=== PATIENT | male | born 1955 | race Caucasian/White ===

== ENCOUNTER 2020-12-06 08:55 | Inpatient (IN) | payer BC ==
[2020-12-06 09:01] VITALS: BMI 29.5
[2020-12-06 10:57] LABS: BASO % 0.5 % (0-2.0); EOS % 0.2 % (0-4.5); HEMATOCRIT 44.8 % (35.4-49); HEMOGLOBIN 14.9 GM/dL (11.7-16.9); LYMPH % 5.2 % (8-40); MCH 32.6 pg (25.7-33.7); MCHC 33.3 g/dl (32.0-35.9); MEAN CELL VOLUME 97.9 fl (80-96); MEAN PLT VOLUME 9.6 fl (7.5-11.1); MONO % 5.8 % (3.8-10.2); NEUT % 88.3 % (42.8-82.8); PLATELET COUNT 287 10^3/uL (134-434); RBC 4.58 M/mm3 (4.00-5.60); RDW 13.8 % (11.9-15.9); WHITE BLOOD COUNT 18.3 K/mm3 (4.0-10.0)
[2020-12-06 11:19] LABS: CHLORIDE 96 mmol/L (98-107); SODIUM 135 mmol/L (136-145)
[2020-12-06 11:24] LABS: ANION GAP 15 MMOL/L (8-16); BLOOD UREA NITROGEN 35.5 mg/dL (7-18); CO2 24 mmol/L (21-32); GLUCOSE,RANDOM 144 mg/dL (74-106)
[2020-12-06 11:27] LABS: CREATININE 1.7 mg/dL (0.55-1.3)
[2020-12-06 11:29] LABS: ALK PHOS 454 U/L (45-117); SGOT/AST 75 U/L (15-37); TOT PROT 7.1 g/dl (6.4-8.2)
[2020-12-06 11:31] LABS: N-TERMINAL BNP 150.7 pg/ml (5-125)
[2020-12-06 11:44] LABS: SGPT/ALT 100 U/L (13-61)
[2020-12-06 11:53] LABS: BILIRUBIN,TOTAL 1.7 mg/dL (0.2-1)
[2020-12-06] MEDS ORDERED: THIAMINE HCL 200 MG/2 ML VIAL IVPB ONE (19:10)
[2020-12-06] MEDS: PANTOPRAZOLE 40 MG TABLET PO SCH (20:24)
[2020-12-06] MEDS ORDERED: cefTRIAXone SODIUM 1 GM VIAL ONE (20:37)
[2020-12-06] MEDS ORDERED: DEXTROSE 5%-WATER - 50 ML IVPB ONE (20:38)
[2020-12-06] MEDS: CEFTRIAXONE 1 GM in DEXTROSE 5%-WATER - 50 ML IVPB SCH (20:42)
[2020-12-06] MEDS ORDERED: SODIUM CHLORIDE 500 ML IV STA (21:07)
[2020-12-06] MEDS ORDERED: SODIUM CHLORIDE 1,000 ML IV SCH (21:30)
[2020-12-06 22:28] LABS: EPI CELLS 22 /uL (0-25.1); HYALINE CASTS 19 /uL (0-3.1); URINE APPEARANCE CLOUDY; URINE BILIRUBIN 2+ (NEGATIVE); URINE COLOR DK YELLOW; URINE GLUCOSE (UA) NEGATIVE (NEGATIVE); URINE KETONE TRACE (NEGATIVE); URINE LEUK ESTERASE NEGATIVE (NEGATIVE); URINE NITRITE POSITIVE (NEGATIVE); URINE PROTEIN TRACE (NEGATIVE); URINE WBC 11 /uL (0-25.8)
[2020-12-06 23:01] LABS: URINE BACTERIA 4.7 /uL (0-1359); URINE RBC 83.8 /uL (0-23.9)
[2020-12-07 09:07] LABS: INR 1.14 (0.83-1.09)
[2020-12-07 09:09] LABS: HEMATOCRIT 41.3 % (35.4-49); HEMOGLOBIN 14.1 GM/dL (11.7-16.9); MCHC 34.1 g/dl (32.0-35.9); MEAN CELL VOLUME 96.9 fl (80-96); MEAN PLT VOLUME 9.3 fl (7.5-11.1); PLATELET COUNT 256 10^3/uL (134-434); RBC 4.26 M/mm3 (4.00-5.60); RDW 13.9 % (11.9-15.9); WHITE BLOOD COUNT 20.2 K/mm3 (4.0-10.0)
[2020-12-07] MEDS ORDERED: cefTRIAXone SODIUM 1 GM VIAL ONE (09:09)
[2020-12-07] MEDS ORDERED: DEXTROSE 5%-WATER - 50 ML IVPB ONE (09:09)
[2020-12-07] MEDS: FOLIC ACID 1 MG TABLET (FP) PO SCH (09:27)
[2020-12-07] MEDS: THIAMINE HCL 100 MG TABLET (FP) PO SCH (09:27)
[2020-12-07] MEDS: CEFTRIAXONE 1 GM in DEXTROSE 5%-WATER - 50 ML IVPB SCH (09:27)
[2020-12-07] MEDS: PANTOPRAZOLE 40 MG TABLET PO SCH (09:27)
[2020-12-07] MEDS: MULTIVITAMINS (DAILY MVI) TABLET (FP) PO SCH (09:27)
[2020-12-07 09:30] LABS: ALBUMIN 2.8 g/dl (3.4-5.0); BLOOD UREA NITROGEN 45.5 mg/dL (7-18); CALCIUM 8.7 mg/dL (8.5-10.1)
[2020-12-07 09:31] LABS: MAGNESIUM 2.4 mg/dL (1.8-2.4)
[2020-12-07 09:34] LABS: CREATININE 1.4 mg/dL (0.55-1.3); PHOSPHOROUS 4.6 mg/dL (2.5-4.9)
[2020-12-07 09:35] LABS: TOT PROT 6.4 g/dl (6.4-8.2)
[2020-12-07 09:42] LABS: BILIRUBIN,TOTAL 1.8 mg/dL (0.2-1)
[2020-12-07] MEDS: SODIUM CHLORIDE 1,000 ML IV SCH (14:32)
[2020-12-07 16:34] LABS: BF WBC & OTHER NUCLEATED CELLS 5153 /mm3
[2020-12-07 17:20] LABS: BODY FLUID MONOCYTE 9 %
[2020-12-07 17:21] LABS: BODY FLUID MESOTHELIAL 2 %
[2020-12-07] MEDS ORDERED: MELATONIN 5 MG TABLETS PO ONE (20:01)
[2020-12-07] MEDS: SPIRONOLACTONE 25 MG TABLET PO SCH (21:08)
[2020-12-07 22:15] LABS: PH,URINE 5.5 (5.0-8.0); URINE APPEARANCE CLEAR; URINE BILIRUBIN 2+ (NEGATIVE); URINE COLOR DK YELLOW; URINE GLUCOSE (UA) NEGATIVE (NEGATIVE); URINE KETONE 1+ (NEGATIVE); URINE LEUK ESTERASE NEGATIVE (NEGATIVE); URINE NITRITE NEGATIVE (NEGATIVE); URINE PROTEIN TRACE (NEGATIVE)
[2020-12-08] MEDS: SODIUM CHLORIDE 1,000 ML IV SCH (02:14)
[2020-12-08 09:07] LABS: BASO % 0.4 % (0-2.0); EOS % 0.4 % (0-4.5); HEMATOCRIT 40.2 % (35.4-49); HEMOGLOBIN 13.6 GM/dL (11.7-16.9); LYMPH % 5.7 % (8-40); MCH 32.8 pg (25.7-33.7); MCHC 33.9 g/dl (32.0-35.9); MEAN CELL VOLUME 96.7 fl (80-96); MEAN PLT VOLUME 9.4 fl (7.5-11.1); MONO % 6.3 % (3.8-10.2); NEUT % 87.2 % (42.8-82.8); PLATELET COUNT 205 10^3/uL (134-434); RBC 4.16 M/mm3 (4.00-5.60); RDW 13.9 % (11.9-15.9)
[2020-12-08 09:18] LABS: ALBUMIN 2.4 g/dl (3.4-5.0); BLOOD UREA NITROGEN 43.4 mg/dL (7-18)
[2020-12-08 09:20] LABS: MAGNESIUM 2.3 mg/dL (1.8-2.4)
[2020-12-08 09:22] LABS: PHOSPHOROUS 3.6 mg/dL (2.5-4.9)
[2020-12-08 09:24] LABS: BILIRUBIN,TOTAL 1.7 mg/dL (0.2-1); TOT PROT 5.6 g/dl (6.4-8.2)
[2020-12-08] MEDS ORDERED: DEXTROSE 5%-WATER - 50 ML IVPB ONE (09:32)
[2020-12-08] MEDS ORDERED: cefTRIAXone SODIUM 1 GM VIAL ONE (09:32)
[2020-12-08] MEDS: PANTOPRAZOLE 40 MG TABLET PO SCH (09:37)
[2020-12-08] MEDS: MULTIVITAMINS (DAILY MVI) TABLET (FP) PO SCH (09:37)
[2020-12-08] MEDS: SPIRONOLACTONE 25 MG TABLET PO SCH (09:37)
[2020-12-08] MEDS: CEFTRIAXONE 1 GM in DEXTROSE 5%-WATER - 50 ML IVPB SCH (09:38)
[2020-12-08] MEDS: THIAMINE HCL 100 MG TABLET (FP) PO SCH (09:38)
[2020-12-08] MEDS: FOLIC ACID 1 MG TABLET (FP) PO SCH (09:38)
[2020-12-08 11:02] LABS: ANISOCYTOSIS 1+; MACROCYTOSIS 0; PLATELET ESTIMATE NORMAL
[2020-12-08] MEDS: MORPHINE SULFATE 2 MG/ML VIAL IVPUSH PRN ×2 (12:08→18:05)
[2020-12-08] MEDS ORDERED: HEPARIN NA (PORCINE) 5,000 UNITS/ML 1ML VIAL IVPUSH ONE (15:18)
[2020-12-08] MEDS ORDERED: HEPARIN NA (PORCINE) 5,000 UNITS/ML 1ML VIAL IVPUSH PRN (15:23)
[2020-12-08] MEDS ORDERED: HEPARIN INFUSION - 25,000 UNITS/500 ML INFUS.BAG IVPB SCH (15:30)
[2020-12-08] MEDS: HEPARIN INFUSION - 25,000 UNITS/500 ML INFUS.BAG IVPB SCH (15:56)
[2020-12-09] MEDS: oxyCODONE HCL 5 MG TABLET PO PRN ×2 (03:09→19:53)
[2020-12-09 09:03] LABS: HEMATOCRIT 40.5 % (35.4-49); HEMOGLOBIN 13.2 GM/dL (11.7-16.9); MCH 32.2 pg (25.7-33.7); MCHC 32.6 g/dl (32.0-35.9); MEAN CELL VOLUME 98.7 fl (80-96); MEAN PLT VOLUME 9.7 fl (7.5-11.1); PLATELET COUNT 282 10^3/uL (134-434); RDW 13.9 % (11.9-15.9); WHITE BLOOD COUNT 27.1 K/mm3 (4.0-10.0)
[2020-12-09 09:17] LABS: BLOOD UREA NITROGEN 55.2 mg/dL (7-18); CALCIUM 8.5 mg/dL (8.5-10.1)
[2020-12-09 09:18] LABS: MAGNESIUM 2.7 mg/dL (1.8-2.4)
[2020-12-09] MEDS ORDERED: DEXTROSE 5%-WATER - 50 ML IVPB ONE (09:20)
[2020-12-09] MEDS ORDERED: cefTRIAXone SODIUM 1 GM VIAL ONE (09:20)
[2020-12-09 09:22] LABS: CREATININE 1.3 mg/dL (0.55-1.3)
[2020-12-09 09:24] LABS: PHOSPHOROUS 5.2 mg/dL (2.5-4.9)
[2020-12-09] MEDS: CEFTRIAXONE 1 GM in DEXTROSE 5%-WATER - 50 ML IVPB SCH (09:29)
[2020-12-09] MEDS: PANTOPRAZOLE 40 MG TABLET PO SCH (09:29)
[2020-12-09] MEDS: FOLIC ACID 1 MG TABLET (FP) PO SCH (10:20)
[2020-12-09] MEDS: MULTIVITAMINS (DAILY MVI) TABLET (FP) PO SCH (10:20)
[2020-12-09] MEDS: THIAMINE HCL 100 MG TABLET (FP) PO SCH (10:21)
[2020-12-09] MEDS: HEPARIN INFUSION - 25,000 UNITS/500 ML INFUS.BAG IVPB SCH ×3 (10:40→23:21)
[2020-12-09] MEDS ORDERED: ALBUMIN HUMAN 25% 12.5 GM/50 ML VIAL IVPB ONE (15:00)
[2020-12-09] MEDS ORDERED: MORPHINE SULFATE 2 MG/ML VIAL IM PRN (15:19)
[2020-12-09] MEDS ORDERED: ACETAMINOPHEN 1000 MG/100 ML VIAL (NON FORMULARY) IVPB PRN (15:20)
[2020-12-09 17:10] LABS: BODY FLUID ALBUMIN 2.5 g/dL (Not Estab.)
[2020-12-09] MEDS: ONDANSETRON 4 MG/2 ML VIAL IVPB PRN (17:26)
[2020-12-09] MEDS ORDERED: SODIUM CHLORIDE 1,000 ML IV SCH (17:45)
[2020-12-09] MEDS ORDERED: MELATONIN 1 MG TABLET PO ONE (22:00)
[2020-12-09] MEDS: HEPARIN NA (PORCINE) 5,000 UNITS/ML 1ML VIAL IVPUSH PRN (23:21)
[2020-12-10] MEDS: HEPARIN INFUSION - 25,000 UNITS/500 ML INFUS.BAG IVPB SCH ×4 (03:41→22:49)
[2020-12-10] MEDS ORDERED: cefTRIAXone SODIUM 1 GM VIAL ONE (09:18)
[2020-12-10] MEDS ORDERED: DEXTROSE 5%-WATER - 50 ML IVPB ONE (09:18)
[2020-12-10 09:41] LABS: CALCIUM 8.7 mg/dL (8.5-10.1)
[2020-12-10 09:42] LABS: MAGNESIUM 2.8 mg/dL (1.8-2.4)
[2020-12-10 09:45] LABS: CREATININE 1.6 mg/dL (0.55-1.3); PHOSPHOROUS 5.4 mg/dL (2.5-4.9)
[2020-12-10] MEDS: FOLIC ACID 1 MG TABLET (FP) PO SCH (11:57)
[2020-12-10] MEDS: THIAMINE HCL 100 MG TABLET (FP) PO SCH (11:57)
[2020-12-10] MEDS: CEFTRIAXONE 1 GM in DEXTROSE 5%-WATER - 50 ML IVPB SCH (11:57)
[2020-12-10] MEDS: PANTOPRAZOLE 40 MG TABLET PO SCH (11:57)
[2020-12-10] MEDS: MULTIVITAMINS (DAILY MVI) TABLET (FP) PO SCH (11:58)
[2020-12-10] MEDS: ONDANSETRON 4 MG/2 ML VIAL IVPB PRN (11:58)
[2020-12-10] MEDS ORDERED: MORPHINE SULFATE 2 MG/ML VIAL IVPUSH PRN (13:04)
[2020-12-10 16:54] LABS: ALBUMIN 2.8 g/dl (3.4-5.0)
[2020-12-10 16:59] LABS: BILIRUBIN,TOTAL 1.4 mg/dL (0.2-1); TOT PROT 5.5 g/dl (6.4-8.2)
[2020-12-10] MEDS ORDERED: BENZOCAINE/MENTH/CETYLPYRD CL 1 EACH LOZENGE MM PRN (17:01)
[2020-12-10 17:11] LABS: ALBUMIN 2.6 g/dl (3.4-5.0)
[2020-12-10 17:15] LABS: BILIRUBIN,TOTAL 1.5 mg/dL (0.2-1)
[2020-12-10 17:16] LABS: TOT PROT 5.7 g/dl (6.4-8.2)
[2020-12-10] MEDS ORDERED: MELATONIN 5 MG TABLETS PO ONE (23:02)
[2020-12-11] MEDS: oxyCODONE HCL 5 MG TABLET PO PRN ×2 (08:04→23:19)
[2020-12-11 08:51] LABS: HEMATOCRIT 37.6 % (35.4-49); HEMOGLOBIN 12.4 GM/dL (11.7-16.9); MCH 32.6 pg (25.7-33.7); MCHC 33.1 g/dl (32.0-35.9); MEAN CELL VOLUME 98.6 fl (80-96); MEAN PLT VOLUME 9.3 fl (7.5-11.1); PLATELET COUNT 377 10^3/uL (134-434); RBC 3.81 M/mm3 (4.00-5.60); RDW 14.4 % (11.9-15.9)
[2020-12-11 09:13] LABS: WHITE BLOOD COUNT 36.8 K/mm3 (4.0-10.0)
[2020-12-11 09:16] LABS: ALBUMIN 2.5 g/dl (3.4-5.0); BLOOD UREA NITROGEN 79.6 mg/dL (7-18); CALCIUM 8.3 mg/dL (8.5-10.1)
[2020-12-11 09:17] LABS: MAGNESIUM 3.1 mg/dL (1.8-2.4)
[2020-12-11 09:20] LABS: CREATININE 3.1 mg/dL (0.55-1.3); PHOSPHOROUS 7.4 mg/dL (2.5-4.9)
[2020-12-11 09:21] LABS: BILIRUBIN,TOTAL 1.5 mg/dL (0.2-1); TOT PROT 5.4 g/dl (6.4-8.2)
[2020-12-11] MEDS ORDERED: DEXTROSE 5%-WATER - 50 ML IVPB ONE ×2 (09:32→17:44)
[2020-12-11] MEDS ORDERED: cefTRIAXone SODIUM 1 GM VIAL ONE (09:32)
[2020-12-11] MEDS: THIAMINE HCL 100 MG TABLET (FP) PO SCH (09:36)
[2020-12-11] MEDS: PANTOPRAZOLE 40 MG TABLET PO SCH (09:36)
[2020-12-11] MEDS: CEFTRIAXONE 1 GM in DEXTROSE 5%-WATER - 50 ML IVPB SCH (09:36)
[2020-12-11] MEDS: FOLIC ACID 1 MG TABLET (FP) PO SCH (09:36)
[2020-12-11] MEDS: MULTIVITAMINS (DAILY MVI) TABLET (FP) PO SCH (09:36)
[2020-12-11] MEDS: MORPHINE SULFATE 2 MG/ML VIAL IVPUSH PRN ×3 (12:27→22:39)
[2020-12-11] MEDS ORDERED: FENTANYL PATCH WASTE MC PRN (13:23)
[2020-12-11] MEDS ORDERED: DOCUSATE SODIUM 100 MG CAPSULE (FP) PO PRN (13:23)
[2020-12-11] MEDS ORDERED: fentaNYL 25mcg/hr PATCH.TD72 TD SCH (13:30)
[2020-12-11] MEDS ORDERED: ALBUMIN HUMAN 25% 12.5 GM/50 ML VIAL IVPB SCH (14:00)
[2020-12-11] MEDS ORDERED: SODIUM CHLORIDE 1,000 ML IV SCH ×2 (14:00→23:45)
[2020-12-11 14:40] LABS: URINE APPEARANCE CLOUDY; URINE BILIRUBIN 1+ (NEGATIVE); URINE COLOR DK YELLOW; URINE GLUCOSE (UA) NEGATIVE (NEGATIVE); URINE KETONE TRACE (NEGATIVE); URINE LEUK ESTERASE NEGATIVE (NEGATIVE); URINE NITRITE NEGATIVE (NEGATIVE); URINE PROTEIN NEGATIVE (NEGATIVE)
[2020-12-11] MEDS: ALBUMIN HUMAN 25% 100 ML VIAL IVPB SCH ×2 (15:28→15:49)
[2020-12-11] MEDS: HEPARIN INFUSION - 25,000 UNITS/500 ML INFUS.BAG IVPB SCH (15:37)
[2020-12-11] MEDS ORDERED: PIPERACILLIN/TAZOBACTAM 2.25 GM VIAL IVPB ONE (17:44)
[2020-12-11] MEDS: PIPERACILLIN/TAZOB 2.25 GM 2.25 GM in DEXTROSE 5%-WATER - 50 ML IVPB SCH (17:47)
[2020-12-11] MEDS: POLYETHYLENE GLYCOL (HEALTHYLAX) 3350 17 GM PACKET PO SCH (21:01)
[2020-12-11] MEDS: MELATONIN 5 MG TABLETS PO SCH (21:17)
[2020-12-11] MEDS ORDERED: oxyCODONE HCL 5 MG TABLET PO ONE (23:37)
[2020-12-12] MEDS: HEPARIN NA (PORCINE) 5,000 UNITS/ML 1ML VIAL IVPUSH PRN (00:53)
[2020-12-12] MEDS ORDERED: PIPERACILLIN/TAZOBACTAM 2.25 GM VIAL IVPB ONE ×3 (02:06→17:52)
[2020-12-12] MEDS ORDERED: DEXTROSE 5%-WATER - 50 ML IVPB ONE ×3 (02:07→17:52)
[2020-12-12] MEDS: PIPERACILLIN/TAZOB 2.25 GM 2.25 GM in DEXTROSE 5%-WATER - 50 ML IVPB SCH ×3 (02:52→17:58)
[2020-12-12 07:24] LABS: BASO % 0.4 % (0-2.0); EOS % 0.1 % (0-4.5); HEMATOCRIT 35.2 % (35.4-49); HEMOGLOBIN 11.5 GM/dL (11.7-16.9); LYMPH % 3.7 % (8-40); MCH 32.5 pg (25.7-33.7); MCHC 32.8 g/dl (32.0-35.9); MEAN CELL VOLUME 99.1 fl (80-96); MEAN PLT VOLUME 8.9 fl (7.5-11.1); MONO % 4.6 % (3.8-10.2); NEUT % 91.2 % (42.8-82.8); PLATELET COUNT 383 10^3/uL (134-434); RBC 3.55 M/mm3 (4.00-5.60); RDW 14.8 % (11.9-15.9)
[2020-12-12 07:33] LABS: INR 1.08 (0.83-1.09); PROTHROMBIN TIME (PATIENT) 13.2 SEC (9.7-13.0)
[2020-12-12 07:36] LABS: ACTIVATED PTT 82.1 SECONDS (25.2-36.5)
[2020-12-12 07:50] LABS: CALCIUM 7.9 mg/dL (8.5-10.1)
[2020-12-12 07:51] LABS: BLOOD UREA NITROGEN 103.7 mg/dL (7-18)
[2020-12-12 07:54] LABS: BILIRUBIN,TOTAL 1.9 mg/dL (0.2-1); CREATININE 4.6 mg/dL (0.55-1.3)
[2020-12-12 07:56] LABS: TOT PROT 5.5 g/dl (6.4-8.2)
[2020-12-12] MEDS: HEPARIN INFUSION - 25,000 UNITS/500 ML INFUS.BAG IVPB SCH ×3 (08:00→17:17)
[2020-12-12] MEDS: MORPHINE SULFATE 2 MG/ML VIAL IVPUSH PRN ×3 (08:18→16:13)
[2020-12-12 09:48] LABS: ANISOCYTOSIS 1+; MACROCYTOSIS 0; PLATELET ESTIMATE NORMAL; TEAR DROP CELLS 1+
[2020-12-12] MEDS: POLYETHYLENE GLYCOL (HEALTHYLAX) 3350 17 GM PACKET PO SCH ×2 (09:48→21:40)
[2020-12-12] MEDS: THIAMINE HCL 100 MG TABLET (FP) PO SCH (09:48)
[2020-12-12] MEDS: FOLIC ACID 1 MG TABLET (FP) PO SCH (09:48)
[2020-12-12] MEDS: PANTOPRAZOLE 40 MG TABLET PO SCH (09:48)
[2020-12-12] MEDS: MULTIVITAMINS (DAILY MVI) TABLET (FP) PO SCH (09:49)
[2020-12-12] MEDS ORDERED: ALBUMIN HUMAN 25% 12.5 GM/50 ML VIAL IVPB SCH (10:00)
[2020-12-12] MEDS: ALBUMIN HUMAN 25% 100 ML VIAL IVPB SCH ×2 (10:15→18:01)
[2020-12-12] MEDS ORDERED: SODIUM CHLORIDE 1,000 ML IV SCH (12:36)
[2020-12-12] MEDS ORDERED: SODIUM BICARBONATE 8.4% 50 MEQ/50 ML VIAL IVPUSH ONE (12:45)
[2020-12-12] MEDS: SODIUM ZIRCONIUM CYCLOSILICATE (LOKELMA) 10 GM PACKET PO SCH ×2 (13:25→21:40)
[2020-12-12] MEDS: MELATONIN 5 MG TABLETS PO SCH (21:40)
[2020-12-12] MEDS: oxyCODONE HCL 5 MG TABLET PO PRN (21:41)
[2020-12-13] MEDS: ALBUMIN HUMAN 25% 100 ML VIAL IVPB SCH (01:04)
[2020-12-13] MEDS ORDERED: DEXTROSE 5%-WATER - 50 ML IVPB ONE ×3 (02:11→17:22)
[2020-12-13] MEDS ORDERED: PIPERACILLIN/TAZOBACTAM 2.25 GM VIAL IVPB ONE ×3 (02:11→17:22)
[2020-12-13] MEDS: PIPERACILLIN/TAZOB 2.25 GM 2.25 GM in DEXTROSE 5%-WATER - 50 ML IVPB SCH ×3 (02:13→18:32)
[2020-12-13 08:31] LABS: BASO % 0.2 % (0-2.0); EOS % 0.2 % (0-4.5); HEMATOCRIT 32.3 % (35.4-49); HEMOGLOBIN 10.6 GM/dL (11.7-16.9); LYMPH % 2.7 % (8-40); MCH 32.4 pg (25.7-33.7); MEAN CELL VOLUME 98.4 fl (80-96); MEAN PLT VOLUME 8.8 fl (7.5-11.1); MONO % 4.5 % (3.8-10.2); NEUT % 92.4 % (42.8-82.8); PLATELET COUNT 414 10^3/uL (134-434); RBC 3.28 M/mm3 (4.00-5.60)
[2020-12-13 08:39] LABS: WHITE BLOOD COUNT 40.2 K/mm3 (4.0-10.0)
[2020-12-13 08:42] LABS: CHLORIDE 90 mmol/L (98-107); SODIUM 126 mmol/L (136-145)
[2020-12-13] MEDS: MORPHINE SULFATE 2 MG/ML VIAL IVPUSH PRN ×2 (08:44→17:41)
[2020-12-13] MEDS: oxyCODONE HCL 5 MG TABLET PO PRN (08:44)
[2020-12-13] MEDS: ONDANSETRON 4 MG/2 ML VIAL IVPB PRN (08:45)
[2020-12-13 08:48] LABS: ANION GAP 20 MMOL/L (8-16); CALCIUM 7.9 mg/dL (8.5-10.1); CO2 16 mmol/L (21-32); GLUCOSE,RANDOM 127 mg/dL (74-106)
[2020-12-13 08:49] LABS: ALBUMIN 3.5 g/dl (3.4-5.0); MAGNESIUM 3.5 mg/dL (1.8-2.4)
[2020-12-13 08:52] LABS: CREATININE 6.5 mg/dL (0.55-1.3); SGOT/AST 124 U/L (15-37); SGPT/ALT 60 U/L (13-61)
[2020-12-13 08:53] LABS: TOT PROT 5.9 g/dl (6.4-8.2)
[2020-12-13 08:54] LABS: ALK PHOS 245 U/L (45-117)
[2020-12-13 08:57] LABS: BLOOD UREA NITROGEN 118.5 mg/dL (7-18)
[2020-12-13] MEDS ORDERED: INSULIN REGULAR HUMAN 100 UNITS/ML *VIAL IVPUSH ONE ×2 (09:00→16:07)
[2020-12-13] MEDS ORDERED: CALCIUM GLUCONATE 10% - 1,000 MG/10 ML VIAL IVPB ONE ×2 (09:00→16:07)
[2020-12-13] MEDS ORDERED: DEXTROSE 50%-WATER 25 GM/50 ML DISP.SYRIN ONE ×2 (09:09→18:07)
[2020-12-13] MEDS ORDERED: INSULIN (NOVOLOG) ASPART 100 UNITS/ML 10ML VIAL ONE (09:09)
[2020-12-13] MEDS ORDERED: DEXTROSE 50%-WATER - 25 GM/50 ML VIAL IVPUSH ONE ×2 (09:15→16:07)
[2020-12-13 09:29] LABS: PHOSPHOROUS 9.8 mg/dL (2.5-4.9)
[2020-12-13] MEDS: PANTOPRAZOLE 40 MG TABLET PO SCH (09:33)
[2020-12-13] MEDS: SODIUM ZIRCONIUM CYCLOSILICATE (LOKELMA) 10 GM PACKET PO SCH (09:34)
[2020-12-13] MEDS: FOLIC ACID 1 MG TABLET (FP) PO SCH (09:34)
[2020-12-13] MEDS: POLYETHYLENE GLYCOL (HEALTHYLAX) 3350 17 GM PACKET PO SCH ×2 (09:34→22:32)
[2020-12-13] MEDS: THIAMINE HCL 100 MG TABLET (FP) PO SCH (09:34)
[2020-12-13] MEDS: MULTIVITAMINS (DAILY MVI) TABLET (FP) PO SCH (09:34)
[2020-12-13] MEDS ORDERED: SODIUM BICARBONATE 8.4% 50 MEQ/50 ML VIAL IVPUSH ONE (10:16)
[2020-12-13 10:24] LABS: ANISOCYTOSIS 1+; MACROCYTOSIS 2+; PLATELET ESTIMATE NORMAL; TEAR DROP CELLS 1+
[2020-12-13] MEDS ORDERED: HEPARIN NA (PORCINE) 5,000 UNITS/ML 1ML VIAL IVPUSH PRN (14:21)
[2020-12-13] MEDS ORDERED: SODIUM BICARBONATE 8.4% 50 MEQ/50 ML DISP.SYRIN IVPUSH ONE ×2 (15:07→16:14)
[2020-12-13] MEDS: HEPARIN - 25,000 UNIT in SODIUM CHLORIDE 495 ML IV SCH (15:19)
[2020-12-13 15:49] LABS: CHLORIDE 92 mmol/L (98-107); SODIUM 128 mmol/L (136-145)
[2020-12-13 15:53] LABS: ANION GAP 18 MMOL/L (8-16); CALCIUM 8.2 mg/dL (8.5-10.1); CO2 18 mmol/L (21-32); GLUCOSE,RANDOM 102 mg/dL (74-106)
[2020-12-13 15:54] LABS: ALBUMIN 3.2 g/dl (3.4-5.0)
[2020-12-13 15:56] LABS: CREATININE 7.1 mg/dL (0.55-1.3); SGOT/AST 145 U/L (15-37); SGPT/ALT 65 U/L (13-61)
[2020-12-13 15:57] LABS: BILIRUBIN,TOTAL 2.1 mg/dL (0.2-1)
[2020-12-13 15:58] LABS: TOT PROT 5.6 g/dl (6.4-8.2)
[2020-12-13 15:59] LABS: ALK PHOS 249 U/L (45-117)
[2020-12-13 16:01] LABS: BLOOD UREA NITROGEN 120.2 mg/dL (7-18)
[2020-12-13] MEDS ORDERED: FUROSEMIDE 40 MG/4 ML INJECTABLE VIAL IVPUSH ONE (16:13)
[2020-12-13] MEDS: SODIUM ZIRCONIUM CYCLOSILICATE (LOKELMA) 5 GM PACKET PO SCH ×3 (17:42→22:32)
[2020-12-13] MEDS: SODIUM BICARBONATE 8.4% - 75 MEQ in SODIUM CHLORIDE 0.45% 1,000 ML IV SCH (17:43)
[2020-12-13] MEDS ORDERED: LACTULOSE 20 GM/30 ML UDC (FOR ORAL USE ONLY) PO ONE (20:12)
[2020-12-13] MEDS: HALOPERIDOL LACTATE 5 MG/ML IM ONE ×2 (20:22→21:00)
[2020-12-13] MEDS ORDERED: SODIUM CHLORIDE 1,000 ML IV STA (21:21)
[2020-12-13 21:44] LABS: CHLORIDE 92 mmol/L (98-107); SODIUM 129 mmol/L (136-145)
[2020-12-13 21:46] LABS: ALBUMIN 2.9 g/dl (3.4-5.0)
[2020-12-13 21:47] LABS: CALCIUM 8.1 mg/dL (8.5-10.1)
[2020-12-13 21:48] LABS: ANION GAP 20 MMOL/L (8-16); CO2 17 mmol/L (21-32); GLUCOSE,RANDOM 90 mg/dL (74-106)
[2020-12-13 21:51] LABS: SGOT/AST 311 U/L (15-37); SGPT/ALT 154 U/L (13-61)
[2020-12-13 21:53] LABS: TOT PROT 5.3 g/dl (6.4-8.2)
[2020-12-13 21:54] LABS: ALK PHOS 258 U/L (45-117); BLOOD UREA NITROGEN 131.3 mg/dL (7-18); CREATININE 7.5 mg/dL (0.55-1.3)
[2020-12-13] MEDS: MELATONIN 5 MG TABLETS PO SCH ×2 (22:30→22:32)
[2020-12-13 22:35] LABS: BF WBC & OTHER NUCLEATED CELLS 2108 /mm3
[2020-12-13] MEDS: HEPARIN NA (PORCINE) 5,000 UNITS/ML 1ML VIAL IVPUSH PRN (23:26)
[2020-12-13 23:47] LABS: BODY FLUID MONOCYTE 3 %
[2020-12-14] MEDS ORDERED: PIPERACILLIN/TAZOBACTAM 2.25 GM VIAL IVPB ONE ×3 (01:30→17:17)
[2020-12-14] MEDS ORDERED: DEXTROSE 5%-WATER - 50 ML IVPB ONE ×3 (01:30→17:17)
[2020-12-14] MEDS: PIPERACILLIN/TAZOB 2.25 GM 2.25 GM in DEXTROSE 5%-WATER - 50 ML IVPB SCH ×3 (01:40→17:20)
[2020-12-14] MEDS: SODIUM BICARBONATE 8.4% - 75 MEQ in SODIUM CHLORIDE 0.45% 1,000 ML IV SCH ×3 (05:32→20:10)
[2020-12-14] MEDS: LACTULOSE 20 GM/30 ML UDC (FOR ORAL USE ONLY) PO SCH ×3 (05:33→22:54)
[2020-12-14 07:11] LABS: CHLORIDE 91 mmol/L (98-107); SODIUM 131 mmol/L (136-145)
[2020-12-14 07:16] LABS: CALCIUM 8.2 mg/dL (8.5-10.1)
[2020-12-14 07:17] LABS: ALBUMIN 2.7 g/dl (3.4-5.0); CO2 16 mmol/L (21-32); GLUCOSE,RANDOM 105 mg/dL (74-106)
[2020-12-14 07:18] LABS: MAGNESIUM 3.6 mg/dL (1.8-2.4)
[2020-12-14 07:20] LABS: SGOT/AST 584 U/L (15-37); SGPT/ALT 290 U/L (13-61)
[2020-12-14 07:22] LABS: TOT PROT 5.2 g/dl (6.4-8.2)
[2020-12-14 07:23] LABS: ALK PHOS 274 U/L (45-117)
[2020-12-14 07:29] LABS: ANION GAP 24 MMOL/L (8-16); BLOOD UREA NITROGEN 124.5 mg/dL (7-18); CREATININE 8.6 mg/dL (0.55-1.3)
[2020-12-14] MEDS ORDERED: SODIUM CHLORIDE 250 ML IV PRN (07:32)
[2020-12-14 07:56] LABS: PHOSPHOROUS 11.3 mg/dL (2.5-4.9)
[2020-12-14] MEDS ORDERED: CALCIUM GLUCONATE IN NACL 1 GM/50 ML BAG IVPB ONE (07:58)
[2020-12-14] MEDS ORDERED: INSULIN REGULAR HUMAN 100 UNITS/ML *VIAL IVPUSH ONE (07:59)
[2020-12-14] MEDS ORDERED: DEXTROSE 50%-WATER - 25 GM/50 ML VIAL IVPUSH ONE (07:59)
[2020-12-14] MEDS ORDERED: ALBUTEROL SO4 0.083% IH SOL 2.5 MG/3 ML VIAL.NEB. NEB ONE (08:30)
[2020-12-14] MEDS ORDERED: ALBUTEROL SO4 HFA INHALER IH ONE (08:33)
[2020-12-14] MEDS ORDERED: DEXTROSE 50%-WATER 25 GM/50 ML DISP.SYRIN ONE (08:33)
[2020-12-14] MEDS: THIAMINE HCL 100 MG TABLET (FP) PO SCH (09:01)
[2020-12-14] MEDS: FOLIC ACID 1 MG TABLET (FP) PO SCH (09:01)
[2020-12-14] MEDS: PANTOPRAZOLE 40 MG TABLET PO SCH (09:01)
[2020-12-14] MEDS: SODIUM ZIRCONIUM CYCLOSILICATE (LOKELMA) 5 GM PACKET PO SCH ×2 (09:01→22:54)
[2020-12-14] MEDS: POLYETHYLENE GLYCOL (HEALTHYLAX) 3350 17 GM PACKET PO SCH ×2 (09:01→22:54)
[2020-12-14] MEDS: MULTIVITAMINS (DAILY MVI) TABLET (FP) PO SCH (09:02)
[2020-12-14] MEDS ORDERED: VASOPRESSIN 20 UNITS/ML VIAL IV ONE (09:57)
[2020-12-14] MEDS ORDERED: NOREPINEPHRINE NS PREMIX 16,000 MCG/500 ML BAG IVPB ONE (10:12)
[2020-12-14] MEDS ORDERED: CALCIUM GLUCONATE 10% - 1,000 MG/10 ML VIAL ONE (10:26)
[2020-12-14] MEDS: PROPOFOL 1,000,000 MCG/100 ML VIAL IVPB SCH ×2 (11:28→15:34)
[2020-12-14] MEDS ORDERED: VECURONIUM BROMIDE 50 MG/50 ML VIAL IVPUSH ONE (11:56)
[2020-12-14] MEDS ORDERED: CALCIUM GLUCONATE 10% - 1,000 MG/10 ML VIAL IVPUSH ONE (11:56)
[2020-12-14] MEDS ORDERED: SODIUM CHLORIDE 1,000 ML IV STA (11:56)
[2020-12-14] MEDS ORDERED: PROPOFOL 200 MG/20 ML VIAL IVPUSH ONE ×3 (11:56→18:22)
[2020-12-14] MEDS ORDERED: PHENYLEPHRINE HCL 10 MG/1 ML SINGLE DOSE VIAL ONE (11:56)
[2020-12-14] MEDS ORDERED: NOREPINEPHRINE D5W PREMIX 16,000 MCG/500 ML BAG IVPB SCH (12:00)
[2020-12-14] MEDS ORDERED: VASOPRESSIN 40 UNITS in SODIUM CHLORIDE 98 ML IVPB SCH (12:00)
[2020-12-14] MEDS: PHENYLEPHRINE NS PREMIX 50,000 MCG/500 ML BAG CVP SCH (12:04)
[2020-12-14] MEDS ORDERED: AMINO ACIDS 4.25%/D5W 1,000 ML IV SCH (13:45)
[2020-12-14 15:04] LABS: BASO % 0.2 % (0-2.0); HEMATOCRIT 31.2 % (35.4-49); HEMOGLOBIN 10.1 GM/dL (11.7-16.9); LYMPH % 1.9 % (8-40); MCH 32.3 pg (25.7-33.7); MCHC 32.4 g/dl (32.0-35.9); MEAN CELL VOLUME 99.5 fl (80-96); MEAN PLT VOLUME 8.7 fl (7.5-11.1); NEUT % 92.9 % (42.8-82.8); PLATELET COUNT 332 10^3/uL (134-434); RBC 3.14 M/mm3 (4.00-5.60); RDW 15.4 % (11.9-15.9)
[2020-12-14] MEDS ORDERED: AMIODARONE IN DEXTROSE,ISO-OSM 150 MG/100 ML BAG IVPB ONE (15:04)
[2020-12-14] MEDS ORDERED: AMIODARONE IN DEXTROSE,ISO-OSM 360 MG/200 ML BAG IVPB ONE (15:04)
[2020-12-14] MEDS ORDERED: VANCOMYCIN 1 GM in D5W (PRE-DOCKED) 1,000 MG/250 ML IVPB SCH (15:15)
[2020-12-14 15:26] LABS: CALCIUM 7.4 mg/dL (8.5-10.1)
[2020-12-14 15:27] LABS: ALBUMIN 2.2 g/dl (3.4-5.0); ANISOCYTOSIS 1+; MACROCYTOSIS 1+; PLATELET ESTIMATE NORMAL
[2020-12-14 15:30] LABS: CREATININE 5.8 mg/dL (0.55-1.3)
[2020-12-14 15:32] LABS: BILIRUBIN,TOTAL 1.9 mg/dL (0.2-1); TOT PROT 4.2 g/dl (6.4-8.2)
[2020-12-14 15:41] LABS: ARTERIAL BLD GAS O2 SATURATION 93.2 mmHg (95-98); ARTERIAL BLOOD GAS BASE EXCESS -8.4 mmol/L (-2-2); ARTERIAL BLOOD GAS PO2 82.1 mmHg (80-100)
[2020-12-14 15:43] LABS: BLOOD UREA NITROGEN 89.7 mg/dL (7-18)
[2020-12-14 15:45] LABS: ALLENS TEST POSITIVE; VENT MODE AC; VENT RATE 18
[2020-12-14] MEDS ORDERED: FENTANYL NS IVPB 500 MCG/100 ML BAG IVPB SCH (15:45)
[2020-12-14 15:47] LABS: ARTERIAL BLOOD GAS pH 7.184 (7.350-7.450)
[2020-12-14] MEDS ORDERED: METOPROLOL TARTRATE 5 MG/5 ML VIAL IVPUSH ONE (17:31)
[2020-12-14 18:36] LABS: INR 1.2 (0.83-1.09); PROTHROMBIN TIME (PATIENT) 14.4 SEC (9.7-13.0)
[2020-12-14 18:39] LABS: ACTIVATED PTT 32.5 SECONDS (25.2-36.5)
[2020-12-14] MEDS: HEPARIN - 25,000 UNIT in SODIUM CHLORIDE 495 ML IV SCH (18:50)
[2020-12-14] MEDS: HEPARIN NA (PORCINE) 5,000 UNITS/ML 1ML VIAL IVPUSH PRN (20:00)
[2020-12-14 22:08] VITALS: TEMP 100
[2020-12-14] MEDS ORDERED: AMIODARONE HCL INJECTION 450 MG in DEXTROSE 5%-WATER - 241 ML IVPB ONE (22:43)
[2020-12-14] MEDS ORDERED: AMIODARONE IN DEXTROSE,ISO-OSM 360 MG/200 ML BAG ONE (22:50)
[2020-12-14] MEDS: MELATONIN 5 MG TABLETS PO SCH (22:54)
[2020-12-14] MEDS ORDERED: AMIODARONE IN DEXTROSE,ISO-OSM 360 MG/200 ML BAG IVPB SCH (23:20)
[2020-12-15] MEDS: PIPERACILLIN/TAZOB 2.25 GM 2.25 GM in DEXTROSE 5%-WATER - 50 ML IVPB SCH ×2 (02:30→11:55)
[2020-12-15] MEDS ORDERED: DEXTROSE 5%-WATER - 50 ML IVPB ONE ×2 (02:49→08:01)
[2020-12-15] MEDS ORDERED: PIPERACILLIN/TAZOBACTAM 2.25 GM VIAL IVPB ONE ×2 (02:49→08:01)
[2020-12-15] MEDS: PHENYLEPHRINE NS PREMIX 50,000 MCG/500 ML BAG CVP SCH (05:41)
[2020-12-15] MEDS ORDERED: SODIUM/POTASSIUM/SOD CHL (EYE WASH) 120 ML BOTTLE OU PRN (06:06)
[2020-12-15] MEDS: LACTULOSE 20 GM/30 ML UDC (FOR ORAL USE ONLY) PO SCH (06:34)
[2020-12-15 06:59] LABS: ARTERIAL BLD GAS O2 SATURATION 98.1 mmHg (95-98); ARTERIAL BLOOD GAS BASE EXCESS -16.6 mmol/L (-2-2); ARTERIAL BLOOD GAS PO2 151.2 mmHg (80-100)
[2020-12-15 07:00] LABS: ALLENS TEST POSITIVE; ARTERIAL BLOOD GAS pH 7.088 (7.350-7.450)
[2020-12-15] MEDS ORDERED: SODIUM BICARBONATE 8.4% 50 MEQ/50 ML DISP.SYRIN IVPUSH ONE ×2 (07:00→09:09)
[2020-12-15 07:01] LABS: VENT MODE A/C; VENT RATE 24
[2020-12-15 07:21] LABS: BASO % 0.2 % (0-2.0); HEMATOCRIT 29.2 % (35.4-49); HEMOGLOBIN 9.1 GM/dL (11.7-16.9); MCH 32.2 pg (25.7-33.7); MCHC 31.2 g/dl (32.0-35.9); MEAN CELL VOLUME 103.4 fl (80-96); MEAN PLT VOLUME 9.1 fl (7.5-11.1); MONO % 5.3 % (3.8-10.2); NEUT % 91.5 % (42.8-82.8); PLATELET COUNT 298 10^3/uL (134-434); RBC 2.83 M/mm3 (4.00-5.60); RDW 16.4 % (11.9-15.9)
[2020-12-15 07:39] LABS: CHLORIDE 97 mmol/L (98-107); SODIUM 133 mmol/L (136-145); WHITE BLOOD COUNT 30.1 K/mm3 (4.0-10.0)
[2020-12-15 07:42] LABS: CO2 16 mmol/L (21-32); GLUCOSE,RANDOM 197 mg/dL (74-106); MAGNESIUM 3.5 mg/dL (1.8-2.4)
[2020-12-15 07:45] LABS: SGPT/ALT 504 U/L (13-61)
[2020-12-15 07:46] LABS: BILIRUBIN,TOTAL 1.5 mg/dL (0.2-1); TOT PROT 4.4 g/dl (6.4-8.2)
[2020-12-15] MEDS ORDERED: SODIUM BICARBONATE 8.4% 50 MEQ/50 ML VIAL ONE (08:02)
[2020-12-15] MEDS ORDERED: ATROPINE SULFATE 1 MG/10 ML DISP.SYRIN IVPUSH ONE (08:45)
[2020-12-15 08:54] LABS: ANISOCYTOSIS 1+; MACROCYTOSIS 1+; PLATELET ESTIMATE NORMAL
[2020-12-15 08:59] LABS: ALK PHOS 334 U/L (45-117); ANION GAP 20 MMOL/L (8-16); BLOOD UREA NITROGEN 111.9 mg/dL (7-18); CALCIUM 6.4 mg/dL (8.5-10.1); CREATININE 8.4 mg/dL (0.55-1.3); SGOT/AST 1324 U/L (15-37)
[2020-12-15] MEDS: SODIUM BICARBONATE 8.4% - 75 MEQ in SODIUM CHLORIDE 0.45% 1,000 ML IV SCH (09:00)
[2020-12-15] MEDS ORDERED: SODIUM CHLORIDE 250 ML IV PRN (09:06)
[2020-12-15 09:09] LABS: PHOSPHOROUS 13.9 mg/dL (2.5-4.9)
[2020-12-15] MEDS ORDERED: INSULIN REGULAR HUMAN 100 UNITS/ML *VIAL IVPUSH ONE (09:09)
[2020-12-15] MEDS ORDERED: DEXTROSE 50%-WATER - 25 GM/50 ML VIAL IVPUSH ONE (09:09)
[2020-12-15] MEDS ORDERED: CALCIUM GLUCONATE IN NACL 1 GM/50 ML BAG IVPB ONE (09:09)
[2020-12-15] MEDS ORDERED: PANTOPRAZOLE SODIUM 40 MG VIAL IVPUSH SCH (10:00)
[2020-12-15 11:42] VITALS: BP 135/45; PULSE 83
[2020-12-15] MEDS: MULTIVITAMINS (DAILY MVI) TABLET (FP) PO SCH (11:54)
[2020-12-15] MEDS: FOLIC ACID 1 MG TABLET (FP) PO SCH (11:54)
[2020-12-15] MEDS: POLYETHYLENE GLYCOL (HEALTHYLAX) 3350 17 GM PACKET PO SCH (11:54)
[2020-12-15] MEDS: THIAMINE HCL 100 MG TABLET (FP) PO SCH (11:55)
== END 2020-12-15 10:04 | disposition expired | DRG 374 ==
LOC: JER 08:55 → JERBED 13:01 → J6S 17:41 → J7W 12-09 16:38 → J4W 12-13 11:52 → JICU 12-14 09:53
PROVIDERS: ATTEND Internal Medicine
PROC: 0W9G30Z Drainage of Peritoneal Cavity with Drainage Device, Percutaneous Approach (ICD-10-PCS; principal; 2020-12-07)
PROC: 5A1D70Z Performance of Urinary Filtration, Intermittent, Less than 6 Hours Per Day (ICD-10-PCS; 2020-12-14)
PROC: 0CHY7BZ Insertion of Airway into Mouth and Throat, Via Natural or Artificial Opening (ICD-10-PCS; 2020-12-14)
PROC: 5A1935Z Respiratory Ventilation, Less than 24 Consecutive Hours (ICD-10-PCS; 2020-12-14)
PROC: 05HM33Z Insertion of Infusion Device into Right Internal Jugular Vein, Percutaneous Approach (ICD-10-PCS; 2020-12-14)
PROC: B543ZZA Ultrasonography of Right Jugular Veins, Guidance (ICD-10-PCS; 2020-12-14)
PROC: 05HN33Z Insertion of Infusion Device into Left Internal Jugular Vein, Percutaneous Approach (ICD-10-PCS; 2020-12-14)
PROC: B544ZZA Ultrasonography of Left Jugular Veins, Guidance (ICD-10-PCS; 2020-12-14)
PROC: 0D9670Z Drainage of Stomach with Drainage Device, Via Natural or Artificial Opening (ICD-10-PCS; 2020-12-14)
DX: C78.89 Secondary malignant neoplasm of other digestive organs (principal); I26.99 Other pulmonary embolism without acute cor pulmonale; A41.9 Sepsis, unspecified organism; K65.8 Other peritonitis; K76.7 Hepatorenal syndrome; J96.01 Acute respiratory failure with hypoxia; R65.21 Severe sepsis with septic shock; J69.0 Pneumonitis due to inhalation of food and vomit; R18.8 Other ascites; N39.0 Urinary tract infection, site not specified; R18.0 Malignant ascites; I24.8 Other forms of acute ischemic heart disease; E87.1 Hypo-osmolality and hyponatremia; I48.92 Unspecified atrial flutter; C78.7 Secondary malignant neoplasm of liver and intrahepatic bile duct; I10 Essential (primary) hypertension; E78.5 Hyperlipidemia, unspecified; Z86.718 Personal history of other venous thrombosis and embolism; R14.0 Abdominal distension (gaseous); D72.829 Elevated white blood cell count, unspecified; F10.10 Alcohol abuse, uncomplicated; R00.0 Tachycardia, unspecified; K21.9 Gastro-esophageal reflux disease without esophagitis; R94.5 Abnormal results of liver function studies; P19.9 Metabolic acidemia in newborn, unspecified; B96.89 Other specified bacterial agents as the cause of diseases classified elsewhere; E87.5 Hyperkalemia; Z96.641 Presence of right artificial hip joint; I46.9 Cardiac arrest, cause unspecified
CPT/HCPCS: 31500; 36415; 36600; 71045-TC-FY; 71260-TC; 74019-TC-FY; 74178-TC; 76705-TC; 76942-TC; 80048; 80053; 80074; 80076; 81003; 82042; 82105; 82140; 82150; 82272; 82378; 82436; 82465; 82550; 82570; 82728; 82803; 82945; 82962; 83516; 83540; 83550; 83615; 83735; 83880; 83986; 84100; 84133; 84153; 84157; 84300; 84478; 84484; 84702; 85025; 85027; 85610; 85730; 86038; 86140; 86301; 86317; 86705; 86753; 86803; 87040; 87070; 87075; 87086; 87102; 87116; 87205; 87206; 87210; 87902; 88108; 88305-TC; 93005; 93010; 93306-TC; 94002; 97116-GP; 97162-GP; 99285-25; C9803; J0282; J1644; P9047; U0003; U0005